=== PATIENT | female | born 1960 | race Caucasian/White ===

== ENCOUNTER 2017-07-18 16:25 | Emergency (ER) | payer MEDICARE, MEDICAID ==
[~2017-07-18] VITALS: Ht 165.1 cm; Wt 111.9 kg
[2017-07-18 19:00] VITALS: BP 183/80
== END 2017-07-18 19:01 | disposition home or self-care (01) ==
LOC: ED 18:45
DX: J20.8 Acute bronchitis due to other specified organisms (principal); I10 Essential (primary) hypertension; J45.909 Unspecified asthma, uncomplicated; B96.89 Other specified bacterial agents as the cause of diseases classified elsewhere; E11.9 Type 2 diabetes mellitus without complications; Z91.041 Radiographic dye allergy status
CPT/HCPCS: 71020; 93005; 99284

== ENCOUNTER 2018-02-26 04:31 | Inpatient (IN) | payer MEDICARE, MEDICAID ==
[~2018-02-26] VITALS: Ht 165.1 cm; Wt 107.3 kg
[2018-02-26] MEDS ORDERED: INSU100C SQ-INSULIN (05:00)
[2018-02-26] MEDS ORDERED: ONDANSETRON ODT 4 MG PO ONE (05:00)
[2018-02-26] MEDS ORDERED: SODIUM CHLORIDE 0.9% 1,000ML IVBOLUS ONE ×3 (05:00→11:30)
[2018-02-26] MEDS ORDERED: ONDANSETRON ODT 4 MG ONE (05:06)
[2018-02-26 05:12] LABS: BASOPHILS # (AUTO) 0.05 x10^3/uL (0-0.1); BASOPHILS % (AUTO) 0 % (0-1); EOSINOPHILS # (AUTO) 0.06 x10^3/uL (0-0.4); EOSINOPHILS % (AUTO) 0 % (1-7); LYMPHOCYTES # (AUTO) 1.12 x10^3/uL (1-3.4); LYMPHOCYTES % (AUTO) 8 % (22-44); MD NO; MEAN CORPUSCULAR HEMOGLOBIN 28.4 pg (27.0-34.8); MEAN CORPUSCULAR HGB CONC 33.2 g/dL (32.4-35.8); MEAN CORPUSCULAR VOLUME 85.4 fL (80-100); MONOCYTES # (AUTO) 0.42 x10^3/uL (0.2-0.8); MONOCYTES % (AUTO) 3 % (2-9); NEUTROPHILS # (AUTO) 12.86 x10^3/uL (1.8-6.8); NEUTROPHILS % (AUTO) 89 % (42-75); PLATELET COUNT 282 x10^3/uL (130-400); RED BLOOD COUNT 4.68 x10^6/uL (3.82-5.3); RED CELL DISTRIBUTION WIDTH 16.2 % (9.6-15.2)
[2018-02-26 05:17] LABS: PH, VENOUS 7.287 pH (7.320-7.420)
[2018-02-26 05:24] LABS: MICROSCOPIC INDICATED
[2018-02-26 05:27] LABS: ALANINE AMINOTRANSFERASE 23 U/L (12-78); ALBUMIN 3.7 g/dL (3.4-5.0); ANION GAP 18 mmol/L (5-15); CHLORIDE 97 mmol/L (98-107)
[2018-02-26 05:28] LABS: ACETONE, SERUM Large (80mg/dL) mg/dL (Negative)
[2018-02-26 05:29] LABS: ALKALINE PHOSPHATASE 158 U/L (45-117); BILIRUBIN,TOTAL 1.4 mg/dL (0.2-1.0); CREATININE 1.27 mg/dL (0.55-1.02); TOTAL PROTEIN 8.1 g/dL (6.4-8.2)
[2018-02-26 05:38] LABS: CULTURE INDICATED? NO
[2018-02-26] MEDS ORDERED: MAALOX/HYOSCYAMINE/LIDOCAINE 45 ML BTL ONE (06:03)
[2018-02-26] MEDS ORDERED: MAALOX/HYOSCYAMINE/LIDOCAINE 45 ML BTL PO ONE (06:30)
[2018-02-26 07:44] LABS: ANION GAP 15 mmol/L (5-15); CALCIUM 7.7 mg/dL (8.5-10.1); CHLORIDE 104 mmol/L (98-107); CREATININE 0.95 mg/dL (0.55-1.02)
[2018-02-26] MEDS ORDERED: REGULAR INSULIN 62.5 UNITS in SODIUM CHLORIDE 0.9% 249.375 ML IV PRN ×2 (08:37→09:32)
[2018-02-26] MEDS ORDERED: LISINOPRIL 20 MG TABLET ONE (08:38)
[2018-02-26] MEDS ORDERED: LISINOPRIL 20 MG TABLET PO ONE (09:00)
[2018-02-26] MEDS ORDERED: PLEASE ENTER WEIGHT MC SCH (09:00)
[2018-02-26] MEDS ORDERED: SODIUM CHLORIDE FLUSH 10ML SYR IVF PRN (09:30)
[2018-02-26] MEDS ORDERED: SODIUM CHLORIDE 0.9% 1,000 ML IV SCH (09:32)
[2018-02-26] MEDS ORDERED: D5%-0.45% NACL 1,000 ML IV PRN (09:32)
[2018-02-26] MEDS ORDERED: GLUCAGON 1 MG IM PRN (10:00)
[2018-02-26] MEDS ORDERED: ACETAMINOPHEN 325 MG TABLET PO PRN (10:00)
[2018-02-26] MEDS ORDERED: DEXTROSE 4 GM TAB.CHEW PO PRN (10:00)
[2018-02-26] MEDS ORDERED: ONDANSETRON 2MG/ML, 2ML IVPush PRN (10:00)
[2018-02-26] MEDS ORDERED: DEXTROSE 50%, 50ML SYRINGE IVPush PRN (10:00)
[2018-02-26] MEDS ORDERED: SODIUM BICARB 8.4%, 50ML SYRINGE IVPB PRN (10:00)
[2018-02-26] MEDS: ENOXAPARIN 40 MG/0.4 ML SQ SCH (10:00)
[2018-02-26 10:21] LABS: HEMOGLOBIN A1C 8.5 % (4.2-6.3)
[2018-02-26 11:09] VITALS: BP 150/51
[2018-02-26] MEDS ORDERED: SODIUM CHLORIDE 0.9% 1,000ML IVBOLUS SCH (12:30)
[2018-02-26 13:16] LABS: ANION GAP 10 mmol/L (5-15); CALCIUM 7.7 mg/dL (8.5-10.1); CHLORIDE 109 mmol/L (98-107); CREATININE 0.87 mg/dL (0.55-1.02)
[2018-02-26] MEDS ORDERED: D5%-0.45% NACL 1,000 ML IV SCH ×2 (15:00→15:02)
[2018-02-26] MEDS ORDERED: LABETALOL 5MG/ML, 20ML IVPush PRN (15:30)
[2018-02-26] MEDS ORDERED: FAMOTIDINE 20 MG TABLET PO ONE (15:30)
[2018-02-26 16:58] LABS: ANION GAP 7 mmol/L (5-15); CALCIUM 7.5 mg/dL (8.5-10.1); CHLORIDE 111 mmol/L (98-107); CREATININE 0.83 mg/dL (0.55-1.02)
[2018-02-26] MEDS ORDERED: INSULIN GLARGINE 100 UNITS/ML, PEN SQ-INSULIN SCH (18:00)
[2018-02-26] MEDS ORDERED: AMLO10TA2 PO (18:58)
[2018-02-26] MEDS ORDERED: LISI-170 PO (18:58)
[2018-02-26] MEDS ORDERED: SIMV20TA3 PO (18:58)
[2018-02-26] MEDS ORDERED: FURO20TA3 PO (18:58)
[2018-02-26] MEDS ORDERED: FLUO20TA25 PO (18:58)
[2018-02-26] MEDS ORDERED: SOLI5TAB2 PO (18:58)
[2018-02-26] MEDS ORDERED: OMEP-110 PO (18:58)
[2018-02-26] MEDS: INSULIN REGULAR 100 UNITS/ML, 3ML VIAL SQ-INSULIN SCH (20:43)
[2018-02-26] MEDS ORDERED: INSULIN LISPRO 100 UNITS/ML, PEN SQ-INSULIN SCH (21:00)
[2018-02-26 21:17] LABS: MICROSCOPIC INDICATED
[2018-02-26] MEDS: FAMOTIDINE 20 MG TABLET PO SCH (21:19)
[2018-02-26] MEDS: SODIUM CHLORIDE FLUSH 10ML SYR IVF SCH (21:20)
[2018-02-26] MEDS: SODIUM CHLORIDE 0.9% 1,000 ML IV SCH (23:03)
[2018-02-27 00:41] LABS: ANION GAP 11 mmol/L (5-15); CALCIUM 7.8 mg/dL (8.5-10.1); CHLORIDE 108 mmol/L (98-107)
[2018-02-27] MEDS: INSULIN REGULAR 100 UNITS/ML, 3ML VIAL SQ-INSULIN SCH ×5 (01:00→20:35)
[2018-02-27 04:00] VITALS: BP 125/41
[2018-02-27 04:28] LABS: BASOPHILS # (AUTO) 0.04 x10^3/uL (0-0.1); BASOPHILS % (AUTO) 0 % (0-1); EOSINOPHILS # (AUTO) 0.23 x10^3/uL (0-0.4); EOSINOPHILS % (AUTO) 2 % (1-7); LYMPHOCYTES # (AUTO) 1.43 x10^3/uL (1-3.4); LYMPHOCYTES % (AUTO) 12 % (22-44); MD NO; MEAN CORPUSCULAR HEMOGLOBIN 28.7 pg (27.0-34.8); MEAN CORPUSCULAR HGB CONC 33.6 g/dL (32.4-35.8); MEAN CORPUSCULAR VOLUME 85.6 fL (80-100); MEAN PLATELET VOLUME 8.8 fL (7.4-10.4); MONOCYTES # (AUTO) 0.61 x10^3/uL (0.2-0.8); MONOCYTES % (AUTO) 5 % (2-9); NEUTROPHILS # (AUTO) 9.82 x10^3/uL (1.8-6.8); NEUTROPHILS % (AUTO) 81 % (42-75); PLATELET COUNT 237 x10^3/uL (130-400); RED BLOOD COUNT 3.66 x10^6/uL (3.82-5.3); RED CELL DISTRIBUTION WIDTH 15.6 % (9.6-15.2)
[2018-02-27 04:37] LABS: ANION GAP 7 mmol/L (5-15); CALCIUM 7.7 mg/dL (8.5-10.1); CHLORIDE 110 mmol/L (98-107)
[2018-02-27 04:39] LABS: CREATININE 0.91 mg/dL (0.55-1.02)
[2018-02-27] MEDS: SODIUM CHLORIDE 0.9% 1,000 ML IV SCH ×2 (05:46→13:13)
[2018-02-27] MEDS: AMLODIPINE 5 MG TABLET PO SCH (08:32)
[2018-02-27] MEDS: FAMOTIDINE 20 MG TABLET PO SCH ×2 (08:33→20:35)
[2018-02-27] MEDS: ENOXAPARIN 40 MG/0.4 ML SQ SCH (08:33)
[2018-02-27] MEDS: LISINOPRIL 20 MG TABLET PO SCH (08:33)
[2018-02-27] MEDS: SODIUM CHLORIDE FLUSH 10ML SYR IVF SCH ×2 (08:33→20:29)
[2018-02-27] MEDS ORDERED: INSULIN GLARGINE 100 UNITS/ML, PEN SQ-INSULIN ONE (09:00)
[2018-02-27] MEDS ORDERED: POTASSIUM CHLORIDE 20 MEQ in SODIUM CHLORIDE 0.9% 1,000 ML IV SCH ×2 (09:32→13:30)
[2018-02-27 14:14] VITALS: BP 152/75
[2018-02-27 19:35] VITALS: BP 158/77
[2018-02-27 21:00] VITALS: BP 158/77
[2018-02-27] MEDS ORDERED: SODIUM CHLORIDE 0.9% 1,000 ML IV SCH (22:30)
[2018-02-28 00:33] VITALS: BP 138/74
[2018-02-28 05:19] LABS: BASOPHILS # (AUTO) 0.04 x10^3/uL (0-0.1); BASOPHILS % (AUTO) 1 % (0-1); EOSINOPHILS # (AUTO) 0.46 x10^3/uL (0-0.4); EOSINOPHILS % (AUTO) 5 % (1-7); LYMPHOCYTES # (AUTO) 1.91 x10^3/uL (1-3.4); LYMPHOCYTES % (AUTO) 21 % (22-44); MD NO; MEAN CORPUSCULAR HEMOGLOBIN 28.8 pg (27.0-34.8); MEAN CORPUSCULAR HGB CONC 33.9 g/dL (32.4-35.8); MEAN PLATELET VOLUME 8.4 fL (7.4-10.4); MONOCYTES # (AUTO) 0.76 x10^3/uL (0.2-0.8); MONOCYTES % (AUTO) 8 % (2-9); NEUTROPHILS # (AUTO) 6.13 x10^3/uL (1.8-6.8); NEUTROPHILS % (AUTO) 66 % (42-75); PLATELET COUNT 238 x10^3/uL (130-400); RED BLOOD COUNT 3.95 x10^6/uL (3.82-5.3); RED CELL DISTRIBUTION WIDTH 16.1 % (9.6-15.2)
[2018-02-28 05:27] LABS: ANION GAP 8 mmol/L (5-15); CALCIUM 8.2 mg/dL (8.5-10.1); CHLORIDE 113 mmol/L (98-107)
[2018-02-28 05:29] LABS: CREATININE 0.61 mg/dL (0.55-1.02)
[2018-02-28] MEDS: INSULIN REGULAR 100 UNITS/ML, 3ML VIAL SQ-INSULIN SCH (07:00)
[2018-02-28 07:17] VITALS: BP 139/74
[2018-02-28] MEDS: LISINOPRIL 20 MG TABLET PO SCH (09:12)
[2018-02-28] MEDS: AMLODIPINE 5 MG TABLET PO SCH (09:13)
[2018-02-28] MEDS: FAMOTIDINE 20 MG TABLET PO SCH ×2 (09:13→21:00)
[2018-02-28] MEDS: SODIUM CHLORIDE FLUSH 10ML SYR IVF SCH ×2 (09:13→21:38)
[2018-02-28] MEDS: ENOXAPARIN 40 MG/0.4 ML SQ SCH (09:13)
[2018-02-28 13:45] VITALS: BP 163/66
[2018-02-28 19:01] VITALS: BP 143/74
[2018-03-01 03:42] VITALS: BP 149/83
[2018-03-01 05:17] LABS: BASOPHILS # (AUTO) 0.03 x10^3/uL (0-0.1); BASOPHILS % (AUTO) 1 % (0-1); EOSINOPHILS # (AUTO) 0.37 x10^3/uL (0-0.4); EOSINOPHILS % (AUTO) 5 % (1-7); LYMPHOCYTES # (AUTO) 1.74 x10^3/uL (1-3.4); LYMPHOCYTES % (AUTO) 24 % (22-44); MD NO; MEAN CORPUSCULAR HEMOGLOBIN 28.8 pg (27.0-34.8); MEAN CORPUSCULAR HGB CONC 33.7 g/dL (32.4-35.8); MEAN CORPUSCULAR VOLUME 85.6 fL (80-100); MEAN PLATELET VOLUME 8.5 fL (7.4-10.4); MONOCYTES # (AUTO) 0.59 x10^3/uL (0.2-0.8); MONOCYTES % (AUTO) 8 % (2-9); NEUTROPHILS # (AUTO) 4.47 x10^3/uL (1.8-6.8); NEUTROPHILS % (AUTO) 62 % (42-75); PLATELET COUNT 231 x10^3/uL (130-400); RED BLOOD COUNT 3.99 x10^6/uL (3.82-5.3); RED CELL DISTRIBUTION WIDTH 16.3 % (9.6-15.2)
[2018-03-01 05:30] LABS: CHLORIDE 109 mmol/L (98-107)
[2018-03-01 05:34] LABS: ANION GAP 8 mmol/L (5-15); CALCIUM 8.7 mg/dL (8.5-10.1); CREATININE 0.67 mg/dL (0.55-1.02)
[2018-03-01 06:48] VITALS: BP 163/82
[2018-03-01] MEDS: FAMOTIDINE 20 MG TABLET PO SCH (08:20)
[2018-03-01] MEDS: AMLODIPINE 5 MG TABLET PO SCH (08:20)
[2018-03-01] MEDS: LISINOPRIL 20 MG TABLET PO SCH (08:21)
[2018-03-01] MEDS: SODIUM CHLORIDE FLUSH 10ML SYR IVF SCH (08:21)
[2018-03-01] MEDS: ENOXAPARIN 40 MG/0.4 ML SQ SCH (10:00)
== END 2018-03-01 12:30 | disposition home or self-care (01) | DRG 637 ==
LOC: ED 06:19 → EDIP 09:19 → CCU 10:40 → 3NE 02-27 11:15 → DCLOUNGE 03-01 12:26
PROVIDERS: ADMIT Family Medicine; ATTEND Family Medicine
DX: E10.10 Type 1 diabetes mellitus with ketoacidosis without coma (principal); R65.11 Systemic inflammatory response syndrome (SIRS) of non-infectious origin with acute organ dysfunction; Z68.41 Body mass index [BMI] 40.0-44.9, adult; F32.9 Major depressive disorder, single episode, unspecified; I10 Essential (primary) hypertension; J45.909 Unspecified asthma, uncomplicated; Z96.41 Presence of insulin pump (external) (internal); E78.5 Hyperlipidemia, unspecified; K21.9 Gastro-esophageal reflux disease without esophagitis; Z79.4 Long term (current) use of insulin; Z79.899 Other long term (current) drug therapy; Z87.891 Personal history of nicotine dependence; Z91.041 Radiographic dye allergy status
CPT/HCPCS: 36415; 80048; 80053; 81001; 82010; 82040; 82803; 82962; 83036; 85025; 87081; 93005; 96361; 96374; 96375; 99291; J1815; J3480; Q0162; J7030; J7050

== ENCOUNTER → 2021-02-05 | Outpatient (CLI) | payer BC, MEDICAID ==
[~2021-02-05] MED LIST: AMLO-211 PO; FLUO20TA25 PO; FURO20TA3 PO; INSU100C SQ-INSULIN; LISI-170 PO; OMEP-110 PO; SIMV20TA19 PO; SOLI5TAB2 PO
== END | disposition home or self-care (01) ==
LOC: CVU 09:21
PROVIDERS: ATTEND Internal Medicine Cardiovascular Disease
DX: I65.23 Occlusion and stenosis of bilateral carotid arteries (principal)
CPT/HCPCS: 93880

== ENCOUNTER 2021-02-14 00:04 | Inpatient (IN) | payer BC, MEDICAID ==
[~2021-02-14] VITALS: Ht 162.6 cm; Wt 127.0 kg
[2021-02-14] MEDS ORDERED: SODIUM CHLORIDE FLUSH 10ML SYR IVF ONE (00:30)
[2021-02-14] MEDS ORDERED: ATOR-2 PO (00:36)
[2021-02-14] MEDS ORDERED: DILT240C81 PO (00:36)
[2021-02-14] MEDS ORDERED: MONT10TA17 PO (00:36)
[2021-02-14] MEDS ORDERED: OXYB-39 PO (00:36)
[2021-02-14] MEDS ORDERED: POTA20TA14 PO (00:36)
[2021-02-14 00:39] LABS: BASOPHILS % (AUTO) 1 % (0-1); EOSINOPHILS % (AUTO) 3 % (1-7); LYMPHOCYTES % (AUTO) 8 % (22-44); MEAN CORPUSCULAR HEMOGLOBIN 27.8 pg (27.0-34.8); MEAN CORPUSCULAR HGB CONC 32.9 g/dL (32.4-35.8); MEAN PLATELET VOLUME 8.4 fL (7.4-10.4); MONOCYTES % (AUTO) 12 % (2-9); NEUTROPHILS % (AUTO) 76 % (42-75); PLATELET COUNT 230 x10^3/uL (130-400); RED BLOOD COUNT 3.97 x10^6/uL (3.82-5.3); RED CELL DISTRIBUTION WIDTH 18.1 % (9.6-15.2)
--- NOTE | 2021-02-14 00:41 | NUR ---
THIS IS A 60 YO F W/ C/O WORSENING SOB STARTING TODAY. PT REPORTS WEARS 2.5L NC BASELINE BUT ARRIVED TO ED TODAY W/O IT. HX OF PULM, HTN, CHF, COPD. 90% RA, 96% 2.5L NC. PIV STARTED, LABS DRAWN. PT RESTING ON [employer] W/ CALL LIGHT IN REACH, SIDE RAILS UPX2 AND FAMILY AT BEDSIDE. RESP EVEN AND UNLABORED, RESHMA.
[2021-02-14 00:49] LABS: ALANINE AMINOTRANSFERASE 40 U/L (12-78); ALBUMIN 2.6 g/dL (3.4-5.0); ANION GAP 5 mmol/L (5-15); CALCIUM 8.7 mg/dL (8.5-10.1); CHLORIDE 105 mmol/L (98-107); CREATININE 1.15 mg/dL (0.55-1.02)
[2021-02-14 00:54] LABS: ALKALINE PHOSPHATASE 663 U/L (45-117); BILIRUBIN,TOTAL 1.2 mg/dL (0.2-1.0); TOTAL PROTEIN 7.8 g/dL (6.4-8.2); TROPONIN I < 0.015 ng/mL (0.000-0.045)
[2021-02-14] MEDS ORDERED: FUROSEMIDE 40 MG/4 ML IV ONE (01:00)
[2021-02-14] MEDS ORDERED: FUROSEMIDE 40 MG/4 ML ONE (01:45)
--- NOTE | 2021-02-14 02:29 | NUR ---
REPORT TO TUNDE LEES. VSS, LORYN. PT AWAITING TRANSPORT.
[2021-02-14] MEDS ORDERED: LABETALOL 5MG/ML, 20ML IVPush PRN (03:00)
[2021-02-14] MEDS ORDERED: ACETAMINOPHEN 325 MG TABLET PO PRN (03:00)
[2021-02-14] MEDS ORDERED: ENOXAPARIN 30 MG/0.3 ML SQ SCH (03:00)
[2021-02-14] MEDS ORDERED: ONDANSETRON 2MG/ML, 2ML IVPush PRN (03:00)
[2021-02-14 03:44] VITALS: BP 120/60
[2021-02-14] MEDS ORDERED: OMEP-110 PO (03:51)
[2021-02-14] MEDS ORDERED: ALBUTEROL SULFATE 2.5 MG/3 ML NPPB PRN (04:30)
[2021-02-14] MEDS ORDERED: GLUCAGON 1 MG IM PRN (06:00)
[2021-02-14] MEDS ORDERED: DEXTROSE 4 GM TAB.CHEW PO PRN (06:00)
[2021-02-14] MEDS ORDERED: DEXTROSE 50%, 50ML SYRINGE IVPush PRN (06:00)
[2021-02-14 06:54] VITALS: BP 127/64
[2021-02-14] MEDS ORDERED: DILTIAZEM 240 MG CAP.ER.24H PO SCH (09:00)
[2021-02-14] MEDS ORDERED: FUROSEMIDE 40 MG/4 ML IV SCH (09:00)
[2021-02-14] MEDS ORDERED: LISINOPRIL 40 MG TABLET PO SCH ×2 (09:00→10:00)
[2021-02-14] MEDS ORDERED: POTASSIUM CHLORIDE 20 MEQ TAB.ER.PRT PO SCH (09:00)
[2021-02-14] MEDS: OXYBUTYNIN CHLORIDE 5 MG TABLET PO SCH (09:46)
[2021-02-14] MEDS: FLUOXETINE HCL 20 MG CAPSULE PO SCH (09:46)
[2021-02-14] MEDS: MONTELUKAST 10 MG TABLET PO SCH (09:46)
[2021-02-14] MEDS: SODIUM CHLORIDE FLUSH 10ML SYR IVF SCH ×2 (09:47→20:17)
[2021-02-14] MEDS ORDERED: DILTIAZEM 60 MG TABLET PO SCH (10:00)
[2021-02-14] MEDS: OMEPRAZOLE 20 MG CAPSULE.DR PO SCH (10:30)
[2021-02-14 13:16] VITALS: BP 178/66
[2021-02-14] MEDS: LISINOPRIL 40 MG TABLET PO SCH (13:41)
[2021-02-14] MEDS: DILTIAZEM 240 MG CAP.ER.24H PO SCH (13:42)
[2021-02-14 20:15] VITALS: BP 149/71
[2021-02-14] MEDS: ATORVASTATIN 40 MG TABLET PO SCH (20:17)
[2021-02-14] MEDS: FUROSEMIDE 40 MG/4 ML IV SCH (20:17)
[2021-02-15 00:25] VITALS: BP 126/65
[2021-02-15] MEDS: OMEPRAZOLE 20 MG CAPSULE.DR PO SCH (05:14)
[2021-02-15 06:13] LABS: BASOPHILS % (AUTO) 1 % (0-1); EOSINOPHILS % (AUTO) 2 % (1-7); LYMPHOCYTES % (AUTO) 11 % (22-44); MEAN CORPUSCULAR HEMOGLOBIN 28.1 pg (27.0-34.8); MEAN CORPUSCULAR HGB CONC 33.6 g/dL (32.4-35.8); MEAN PLATELET VOLUME 8.7 fL (7.4-10.4); MONOCYTES % (AUTO) 11 % (2-9); NEUTROPHILS % (AUTO) 75 % (42-75); PLATELET COUNT 211 x10^3/uL (130-400); RED BLOOD COUNT 3.59 x10^6/uL (3.82-5.3); RED CELL DISTRIBUTION WIDTH 18.1 % (9.6-15.2)
[2021-02-15 06:31] LABS: CHLORIDE 101 mmol/L (98-107)
[2021-02-15 06:45] LABS: ANION GAP 6 mmol/L (5-15); CALCIUM 8.8 mg/dL (8.5-10.1); CHOL/HDL RATIO 2.2; CHOLESTEROL, TOTAL 106 mg/dL (140-239); CREATININE 1.21 mg/dL (0.55-1.02); HDL CHOL % 46 % (28-40); HDL CHOLESTEROL (DIRECT) 49 mg/dL (40-60); LDL CHOLESTEROL,CALCULATED 45 mg/dL (54-169); LDL/HDL RATIO 0.9 (0.5-3.0); TRIGLYCERIDES 61 mg/dL (50-200); VLDL CHOLESTEROL 12 mg/dL (0-25)
[2021-02-15 08:00] VITALS: BP 171/64
[2021-02-15] MEDS: MONTELUKAST 10 MG TABLET PO SCH (08:06)
[2021-02-15] MEDS: OXYBUTYNIN CHLORIDE 5 MG TABLET PO SCH (08:07)
[2021-02-15] MEDS: DILTIAZEM 240 MG CAP.ER.24H PO SCH (08:07)
[2021-02-15] MEDS: FLUOXETINE HCL 20 MG CAPSULE PO SCH (08:07)
[2021-02-15] MEDS: LISINOPRIL 40 MG TABLET PO SCH (08:07)
[2021-02-15] MEDS: FUROSEMIDE 40 MG/4 ML IV SCH ×2 (08:08→20:11)
[2021-02-15] MEDS: SODIUM CHLORIDE FLUSH 10ML SYR IVF SCH ×2 (08:08→20:44)
[2021-02-15] MEDS ORDERED: DILTIAZEM 240 MG CAP.ER.24H PO SCH (09:00)
[2021-02-15] MEDS ORDERED: SPIRONOLACTONE 25 MG TABLET PO SCH (09:00)
[2021-02-15] MEDS ORDERED: ENOXAPARIN 30 MG/0.3 ML SQ SCH (09:00)
[2021-02-15 13:22] VITALS: BP 113/57
[2021-02-15 16:12] LABS: TROPONIN I < 0.015 ng/mL (0.000-0.045)
[2021-02-15] MEDS ORDERED: hydrALAzine 20 MG/ML, 1ML IV PRN (16:30)
[2021-02-15] MEDS ORDERED: ENOXAPARIN 40 MG/0.4 ML SQ SCH (20:00)
[2021-02-15] MEDS: ATORVASTATIN 40 MG TABLET PO SCH (20:11)
[2021-02-15 21:40] VITALS: BP 150/87
[2021-02-15 22:05] VITALS: BP 143/61
[2021-02-16 03:01] VITALS: BP 149/74
[2021-02-16 04:36] LABS: ANION GAP 5 mmol/L (5-15); CALCIUM 8.7 mg/dL (8.5-10.1); CHLORIDE 100 mmol/L (98-107)
[2021-02-16 04:37] LABS: CREATININE 1.62 mg/dL (0.55-1.02)
[2021-02-16] MEDS: OMEPRAZOLE 20 MG CAPSULE.DR PO SCH (05:23)
[2021-02-16 08:00] VITALS: BP 176/74
[2021-02-16] MEDS: OXYBUTYNIN CHLORIDE 5 MG TABLET PO SCH (08:34)
[2021-02-16] MEDS: FLUOXETINE HCL 20 MG CAPSULE PO SCH (08:34)
[2021-02-16] MEDS: MONTELUKAST 10 MG TABLET PO SCH (08:34)
[2021-02-16] MEDS: LISINOPRIL 40 MG TABLET PO SCH (08:34)
[2021-02-16] MEDS: SODIUM CHLORIDE FLUSH 10ML SYR IVF SCH ×2 (08:34→20:50)
[2021-02-16] MEDS: HEPARIN 5,000 UNITS/ML, 1ML SQ SCH ×2 (09:26→15:21)
[2021-02-16 13:17] VITALS: BP 173/82
[2021-02-16 15:22] VITALS: BP 150/74
[2021-02-16 20:00] VITALS: BP 134/75
[2021-02-16] MEDS: ATORVASTATIN 40 MG TABLET PO SCH (20:50)
[2021-02-17] MEDS: HEPARIN 5,000 UNITS/ML, 1ML SQ SCH ×2 (00:44→09:57)
[2021-02-17 02:00] VITALS: BP 145/76
[2021-02-17 05:56] LABS: BASOPHILS % (AUTO) 1 % (0-1); EOSINOPHILS % (AUTO) 6 % (1-7); LYMPHOCYTES % (AUTO) 11 % (22-44); MEAN PLATELET VOLUME 8.6 fL (7.4-10.4); MONOCYTES % (AUTO) 11 % (2-9); NEUTROPHILS % (AUTO) 71 % (42-75); PLATELET COUNT 195 x10^3/uL (130-400); RED BLOOD COUNT 3.63 x10^6/uL (3.82-5.3)
[2021-02-17 06:00] LABS: ALBUMIN 2.5 g/dL (3.4-5.0); ANION GAP 5 mmol/L (5-15); CALCIUM 8.8 mg/dL (8.5-10.1); CHLORIDE 106 mmol/L (98-107)
[2021-02-17] MEDS: OMEPRAZOLE 20 MG CAPSULE.DR PO SCH (06:03)
[2021-02-17 06:08] LABS: ALANINE AMINOTRANSFERASE 29 U/L (12-78); ALKALINE PHOSPHATASE 464 U/L (45-117); BILIRUBIN,TOTAL 0.8 mg/dL (0.2-1.0); CREATININE 1.09 mg/dL (0.55-1.02); TOTAL PROTEIN 7.1 g/dL (6.4-8.2)
[2021-02-17] MEDS ORDERED: FUROSEMIDE 40 MG/4 ML IV SCH (09:00)
[2021-02-17] MEDS: SODIUM CHLORIDE FLUSH 10ML SYR IVF SCH (09:00)
[2021-02-17 09:55] VITALS: BP 161/76
[2021-02-17] MEDS: MONTELUKAST 10 MG TABLET PO SCH (09:57)
[2021-02-17] MEDS: FLUOXETINE HCL 20 MG CAPSULE PO SCH (09:57)
[2021-02-17] MEDS: LISINOPRIL 40 MG TABLET PO SCH (09:57)
[2021-02-17] MEDS: OXYBUTYNIN CHLORIDE 5 MG TABLET PO SCH (09:57)
[2021-02-17] MEDS ORDERED: HYDR-3343 PO (13:16)
[2021-02-17] MEDS ORDERED: FURO-92 PO (13:16)
[2021-02-17 14:02] VITALS: BP 164/68
[2021-02-18 16:21] LABS: ANA SCREEN NEGATIVE (Negative)
== END 2021-02-17 16:30 | disposition home health service (06) | DRG 291 ==
LOC: ED 01:22 → EDIP 02:07 → 5SO 02:43
PROVIDERS: ADMIT Family Medicine; ATTEND Hospitalist
DX: I13.0 Hypertensive heart and chronic kidney disease with heart failure and stage 1 through stage 4 chronic kidney disease, or unspecified chronic kidney disease (principal); I50.43 Acute on chronic combined systolic (congestive) and diastolic (congestive) heart failure; J96.11 Chronic respiratory failure with hypoxia; J44.1 Chronic obstructive pulmonary disease with (acute) exacerbation; N17.9 Acute kidney failure, unspecified; Z68.42 Body mass index [BMI] 45.0-49.9, adult; N18.2 Chronic kidney disease, stage 2 (mild); D64.9 Anemia, unspecified; E10.22 Type 1 diabetes mellitus with diabetic chronic kidney disease; E66.01 Morbid (severe) obesity due to excess calories; I07.1 Rheumatic tricuspid insufficiency; G47.33 Obstructive sleep apnea (adult) (pediatric); F32.9 Major depressive disorder, single episode, unspecified; E78.5 Hyperlipidemia, unspecified; J98.4 Other disorders of lung; I44.1 Atrioventricular block, second degree; Z96.41 Presence of insulin pump (external) (internal); I27.20 Pulmonary hypertension, unspecified; K21.9 Gastro-esophageal reflux disease without esophagitis; N32.81 Overactive bladder; Z79.899 Other long term (current) drug therapy; Z87.891 Personal history of nicotine dependence; Z91.041 Radiographic dye allergy status; Z91.040 Latex allergy status; Z99.81 Dependence on supplemental oxygen
CPT/HCPCS: 36415; 71045; 76700; 80048; 80053; 80061; 82977; 83036; 83735; 83880; 84145; 84443; 84484; 85025; 86038; 93005; 93306; 96374; G0378; J1644; J1650; J1940; J7512

== ENCOUNTER 2021-02-20 10:00 | Day surgery (SDC) | payer BC, MEDICAID ==
[~2021-02-20] VITALS: Ht 162.6 cm; Wt 102.3 kg
[~2021-02-20 10:00] MED LIST changes: +ATOR-2 PO; +DILT240C81 PO; +FURO-92 PO; +HYDR-3343 PO; +MONT10TA17 PO; +OXYB-39 PO; +POTA20TA14 PO
[2021-02-20] MEDS ORDERED: SODIUM CHLORIDE 0.9% 1,000 ML IV SCH ×2 (10:30→15:00)
[2021-02-20] MEDS ORDERED: DIPHENHYDRAMINE 50 MG/ML, 1ML IVPush ONE (10:30)
[2021-02-20] MEDS ORDERED: LISI1TAB20 PO (10:49)
[2021-02-20] MEDS ORDERED: INSU100C5 SQ-INSULIN (10:49)
[2021-02-20] MEDS ORDERED: methylPREDNISolone SOD SUCC 125 MG/2 ML ONE (11:06)
[2021-02-20] MEDS ORDERED: DIPHENHYDRAMINE 50 MG/ML, 1ML ONE (11:07)
[2021-02-20 11:09] VITALS: BP 166/92
[2021-02-20 11:16] LABS: BASOPHILS % (AUTO) 1 % (0-1); EOSINOPHILS % (AUTO) 4 % (1-7); LYMPHOCYTES % (AUTO) 12 % (22-44); MEAN CORPUSCULAR HGB CONC 33.2 g/dL (32.4-35.8); MEAN PLATELET VOLUME 8.4 fL (7.4-10.4); MONOCYTES % (AUTO) 10 % (2-9); NEUTROPHILS % (AUTO) 73 % (42-75); PLATELET COUNT 198 x10^3/uL (130-400); RED BLOOD COUNT 3.77 x10^6/uL (3.82-5.3); RED CELL DISTRIBUTION WIDTH 17.9 % (9.6-15.2)
[2021-02-20 11:23] LABS: ANION GAP 3 mmol/L (5-15); CALCIUM 8.8 mg/dL (8.5-10.1); CHLORIDE 106 mmol/L (98-107); CREATININE 0.84 mg/dL (0.55-1.02)
[2021-02-20] MEDS ORDERED: methylPREDNISolone SOD SUCC 125 MG/2 ML IVPush SCH (12:00)
[2021-02-20] MEDS ORDERED: MIDAZOLAM 1 MG/ML, 2ML ONE (13:44)
[2021-02-20] MEDS ORDERED: FENTANYL PF 100 MCG/2ML ONE (13:44)
[2021-02-20] MEDS ORDERED: VERAPAMIL 2.5 MG/ML, 2ML ONE (13:44)
[2021-02-20] MEDS ORDERED: LIDOCAINE-MPF 1%, 5ML ONE (13:44)
[2021-02-20] MEDS ORDERED: HEPARIN 1,000 UNITS/ML, 10ML ONE (13:45)
[2021-02-20] MEDS ORDERED: FUROSEMIDE 40 MG/4 ML ONE (15:19)
[2021-02-20] MEDS ORDERED: FUROSEMIDE 40 MG/4 ML IV ONE (15:30)
[2021-02-20] MEDS ORDERED: BUME1TAB21 PO (15:49)
[2021-02-20] MEDS ORDERED: SPIR25TA PO (15:53)
== END 2021-02-20 16:56 | disposition home or self-care (01) ==
LOC: CACL 10:00
PROVIDERS: ATTEND Internal Medicine Cardiovascular Disease
DX: I27.20 Pulmonary hypertension, unspecified (principal); I10 Essential (primary) hypertension; E11.9 Type 2 diabetes mellitus without complications; E78.2 Mixed hyperlipidemia; G47.30 Sleep apnea, unspecified; Z79.899 Other long term (current) drug therapy; Z91.040 Latex allergy status; Z91.041 Radiographic dye allergy status
CPT/HCPCS: 36415; 80048; 82803; 83880; 85025; 93456; 99156; 99157; C1894; J1200; J1644; J1940; J2250; J2930; J3010; J7030; Q9967

== ENCOUNTER 2021-02-21 19:14 | Emergency (ER) | payer BC, MEDICAID ==
[~2021-02-21] VITALS: Ht 167.6 cm; Wt 122.5 kg
[~2021-02-21 19:14] MED LIST changes: +BUME1TAB21 PO; +INSU100C5 SQ-INSULIN; +LISI1TAB20 PO; +SPIR25TA PO
--- NOTE | 2021-02-21 19:43 | NUR ---
PT IN GOWN IN [facility]; DR EASTON AT . 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 VSS AT THIS TIME. PT EDUCATED ON ER PROCESS AND POC AND VERBALIZES UNDERSTANDING. CALL LIGHT IS WITHIN REACH. AWAITING ORDERS FROM ERP AT THIS TIME.
--- NOTE | 2021-02-21 20:17 | NUR ---
PIV ACCESS ESTABLISHED. LABS COLLECTED AND TUBED AT THIS TIME. PT TO CT VIA GURNEY AT THIS TIME.
[2021-02-21] MEDS ORDERED: SODIUM CHLORIDE FLUSH 10ML SYR IVF ONE (20:30)
[2021-02-21 20:38] LABS: BASOPHILS % (AUTO) 1 % (0-1); EOSINOPHILS % (AUTO) 2 % (1-7); LYMPHOCYTES % (AUTO) 6 % (22-44); MEAN CORPUSCULAR HEMOGLOBIN 28.1 pg (27.0-34.8); MEAN CORPUSCULAR HGB CONC 33.1 g/dL (32.4-35.8); MEAN PLATELET VOLUME 8.5 fL (7.4-10.4); MONOCYTES % (AUTO) 10 % (2-9); NEUTROPHILS % (AUTO) 82 % (42-75); PLATELET COUNT 193 x10^3/uL (130-400); RED BLOOD COUNT 3.76 x10^6/uL (3.82-5.3); RED CELL DISTRIBUTION WIDTH 18.1 % (9.6-15.2)
[2021-02-21 20:48] LABS: ALANINE AMINOTRANSFERASE 45 U/L (12-78); ALBUMIN 2.7 g/dL (3.4-5.0); ANION GAP 5 mmol/L (5-15); CALCIUM 8.7 mg/dL (8.5-10.1); CHLORIDE 107 mmol/L (98-107)
[2021-02-21 20:50] LABS: ALKALINE PHOSPHATASE 502 U/L (45-117); BILIRUBIN,TOTAL 1.1 mg/dL (0.2-1.0); CREATININE 0.99 mg/dL (0.55-1.02); TOTAL PROTEIN 7.4 g/dL (6.4-8.2)
[2021-02-21 21:59] LABS: MICROSCOPIC NOT IND
[2021-02-21 22:28] VITALS: BP 144/57
== END 2021-02-21 22:33 | disposition home or self-care (01) ==
LOC: ED 21:36
DX: G45.4 Transient global amnesia (principal); R00.0 Tachycardia, unspecified; E11.9 Type 2 diabetes mellitus without complications; I10 Essential (primary) hypertension; K21.9 Gastro-esophageal reflux disease without esophagitis; Z87.891 Personal history of nicotine dependence
CPT/HCPCS: 36415; 70450; 80053; 81003; 82962; 85025; 93005; 99285